=== PATIENT | male | born 1985 | race Caucasian/White ===

== ENCOUNTER 2018-06-07 23:16 | Inpatient (IN) | payer OTHER ==
[~2018-06-07] VITALS: Ht 185.4 cm; Wt 79.4 kg
[~2018-06-07 23:16] MED LIST: HYDROCODON-ACE1 EAC7 PO; PENICILLIN V P500 MG PO; VICODIN 5-3001 EACH PO
[2018-06-07 23:21] VITALS: BP 168/104
[2018-06-07 23:48] LABS: ABSOLUTE EOSINOPHILS 0.2 thou/uL (0.0-0.7); ABSOLUTE LYMPHOCYTES 1.9 thou/uL (0.8-5.3); ABSOLUTE MONOCYTES 0.5 thou/uL (0.0-1.2); ABSOLUTE NEUTROPHILS 6.1 thou/uL (1.6-8.1); BASOPHILS 0.4 %; EOSINOPHILS 1.8 %; HEMATOCRIT 45.7 % (42.0-52.0); HEMOGLOBIN 15.4 gm/dL (14.0-18.0); LYMPHOCYTES 21.9 %; MCH 31.4 pg (26.0-34.0); MCHC 33.6 g/dL (28.0-37.0); MCV 93.4 fL (80.0-100.0); MONOCYTES 6.1 %; MPV 9.2 fl. (7.2-11.1); NUCLEATED RBCS 0 /100WBC; PLATELET COUNT* 235 thou/uL (150-400); POLYS 69.8 %; RBC 4.89 mil/uL (4.50-6.00); RDW-CV 14.4 % (10.5-14.5); WBC 8.7 thou/uL (4.0-11.0)
[2018-06-07 23:51] LABS: CALCIUM 9.6 mg/dL (8.5-10.1); CREATININE 0.9 mg/dL (0.6-1.3); INR 0.9; POTASSIUM 3.7 mmol/L (3.5-5.1); PROTIME 9.6 Seconds (9.20-11.50)
[2018-06-07 23:55] LABS: ALBUMIN 4.5 g/dL (3.4-5.0); TOTAL PROTEIN 8.2 g/dL (6.4-8.2)
[2018-06-08] VITALS (7 sets, daily range): BP systolic 120–131; BP diastolic 75–85
[2018-06-08] MEDS ORDERED: NORCO 7.5-3251 EACH PO (00:20)
--- NOTE | 2018-06-08 06:14 | NUR ---
PT TO FLOOR APROX 0200. VITALS WNL. SEE MAR. SEE CHARTING. JENNIFER ISBELLING FOR SAFETY.
--- NOTE | 2018-06-08 07:15 | NUR ---
ASSUMED CARE OF PTASSESSED AND DOCUMENTED. PT IS ON CARDIAC MONITR TRACING SR. PT IS A&O WITH NO C/O PAIN. VSS WNL. PT IS AFEBRILE. HE CONT ON HEPARIN GTT FOR BLOOD CLOT IN RADIAL ARTERY ON L HAND. BED IS IN LOW POSITION CALL LIGHT IS IN REACH. WM.
[2018-06-08 11:39] LABS: CREATININE 0.7 mg/dL (0.6-1.3); POTASSIUM 3.7 mmol/L (3.5-5.1)
[2018-06-08 11:56] LABS: CHOLESTEROL 138 mg/dL (<200); HDL CHOLESTEROL 51 mg/dL (>40); LDL CHOLESTEROL 70 mg/dL (<100); TC:HDL 2.7 Ratio (Not establshd); TRIGLYCERIDE 87 mg/dL (<150); VLDL 17 mg/dL (<40)
[2018-06-08 11:58] LABS: SERUM ASSESSMENT Clear
--- NOTE | 2018-06-08 12:11 | NUR ---
Pt is A&O. Resides at home alone. Independent and active. No DME. No hx HH or SNF. Goal is home.
--- NOTE | 2018-06-08 14:26 | EKG ---
[place] [address] ELECTROCARDIOGRAM REPORT Name: CARISA SCHULZ Room: [address] ADM IN .R.#: [id number] Admission: 06/08/18 Attend Phys: Jailyn Escoto MD Discharge: Date of : 89 Report #: [id number] THIS REPORT FOR: //name// [facility] ED Test Date: 2018-06-08 Test Time: 01:07:08 Pat Name: CARISA SCHULZ Department: Room: [facility] Gender: Knocker Out: [place] : 1985 Requested By: Melinda Man Order Number: [id number] MD: Demarco Ramirez Measurements Intervals Osprey Rate: 79 P: 65 W[place]: 155 QRS: 74 QRSD: 90 T: 42 QT: 366 QTc: 420 Interpretive Statements Sinus rhythm ST elev, probable normal early repol pattern No previous ECG available for comparison Electronically Signed On 06-08-2018 14:25:55 COMPUTER LAB ASSISTANT by Demarco Ramirez [email or web address] <ELECTRONICALLY SIGNED> By: Demarco Ramirez MD, [facility] 06/08/18 1425 010 010 Demarco Ramirez MD, FACC /EPI
--- NOTE | 2018-06-08 16:57 | NUR ---
PT HAS RESTED IN HIS ROOM THIS SHIFT. HEPARIN STOPPED AND PT STARTED ON XARALTO. PT HAD PAIN MED X2 FOR HIS L WRIST. SWELLING HAS DECREASED AND PT STATES FEELING IS COMING BACK. HOURLY ROUNDING COMPLETE. EDUCATION GIVEN ON DEMAND.
--- NOTE | 2018-06-08 17:56 | 2DMMODE ---
[place] [address] 2 D/M-MODE ECHOCARDIOGRAM Name: CARISA SCHULZ Room: [address] [place] [facility]#: [id number] Admission: 06/08/18 Attend Phys: Jailyn Escoto, Discharge: Date of : 89 Date of Service: 06/08/18 1755 Report #: [id number] THIS REPORT FOR: //name// APPROVED REPORT Study performed: 06/08/2018 14:13:40 EXAM: Comprehensive 2D, Doppler, and color-flow Echocardiogram Patient Location: In-Patient Room #: [facility] Status: routine BSA: 2.04 HR: 74 bpm BP: 120/79 mmHg Rhythm: NSR Other Information Study Quality: Excellent Indications R/O thrombus source 2D Dimensions IVSd: 7.84 (7-11mm) LVOT Diam: 23.08 (18-24mm) LVDd: 48.55 mm PWd: 8.83 (7-11mm) Ascending Ao: 33.85 (22-36mm) LVDs: 32.56 (25-40mm) Aortic Root: 28.47 mm Volumes Left Atrial Volume (Systole) LA ESV Index: 20.30 mL/m2 Aortic Valve AoV Peak Jin.: 1.33 m/s AO Peak Gr.: 7.03 mmHg LVOT Max P.55 mmHg AO Mean Gr.: 3.61 mmHg LVOT Mean P.42 mmHg LVOT Max V: 1.18 m/s AO V2 VTI: 19.67 cm LVOT Mean V: 0.70 m/s MAXWELL (VTI): 4.30 cm2 LVOT V1 VTI: 20.24 cm Mitral Valve E/A Ratio: 1.40 MV Decel. Time: 151.25 ms MV E Max Jin.: 0.75 m/[place] [address] 2 D/M-MODE ECHOCARDIOGRAM Name: CARISA SCHULZ Room: [address] IN ..#: [id number] Admission: 06/08/18 Attend Phys: Jailyn Escoto, Discharge: Date of : 89 Date of Service: 06/08/18 1755 Report #: [id number] MV PHT: 43.86 ms MVA (PHT): 5.02 cm2 TDI E/Lateral E': 3.95 E/Medial E': 4.41 Medial E' Jin.: 0.17 m/s Lateral E' Jin.: 0.19 m/s Pulmonary Valve PV Peak Jin.: 1.10 m/s PV Peak Gr.: 4.84 mmHg Left Ventricle The left ventricle is normal size. There is normal LV segmental wall motion. There is normal left ventricular wall thickness. Left ventricular systolic function is normal. The left ventricular ejection fraction is within the normal range. LVEF is 60-65%. The left ventricular diastolic function is normal. Right Ventricle The right ventricle is normal size. The right ventricular systolic function is normal. Atria The left atrium size is normal. The right atrium size is normal. Aortic Valve The aortic valve is normal in structure. No aortic regurgitation is present. There is no aortic valvular stenosis. Mitral Valve The mitral valve is normal in structure. There is no mitral valve regurgitation noted. No evidence of mitral valve stenosis. Tricuspid Valve The tricuspid valve is normal in structure. Trace tricuspid regurgitation. Unable to assess PA pressure. Pulmonic Valve The pulmonary valve is normal in structure. There is no pulmonic valvular regurgitation. Great Vessels The aortic root is normal in size. IVC is normal in size and collapses >50% [place] [address] 2 D/M-MODE ECHOCARDIOGRAM Name: CARISA SCHULZ Gopi Room: [address] [place] [facility]#: [id number] Admission: 06/08/18 Attend Phys: Jailyn Escoto, Discharge: Date of : 89 Date of Service: 06/08/18 1755 Report #: [id number] Pericardium There is no pericardial effusion. <Conclusion> Left ventricular systolic function is normal. The left ventricular ejection fraction is within the normal range. <ELECTRONICALLY SIGNED> By: Demarco Ramirez MD, FACC 06/08/181754 54 54 Demarco Ramirez MD, FACC /INF
[2018-06-09 02:08] LABS: GLYCOHEMOGLOBIN (HGB A1C) 4.8 % (4.8-5.6)
[2018-06-09 04:00] VITALS: BP 125/79
[2018-06-09 04:43] LABS: POC CA IONIZED 4.8 mg/dL (4.5-5.3); POC CREATININE 0.7 mg/dL (0.6-1.3); POC POTASSIUM 3.8 mmol/L (3.5-4.9)
--- NOTE | 2018-06-09 06:43 | NUR ---
ASSUMED PT CARE @ 1930. SEE MAR AND CHARTING. MORPHINE GIVEN X2 FOR LEFT HAND PAIN. 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 ONLY MILD DISCOLORATION IN LEFT PINKIE. PT REPORTS LESS NUMBNESS AND TINGLING. HOURLY PRECAUTIONS IN PLACE FOR SAFETY.
[2018-06-09 09:15] VITALS: BP 132/84
[2018-06-09 12:00] VITALS: BP 124/81
--- NOTE | 2018-06-09 18:42 | NUR ---
RECEIVED REPORT FROM WILL AND ASSUMED CARE OF PT AT 0730. VSS TRACING NORMAL SINUS RHYTHM ON CHEMICAL RESEARCH TECHNICIAN. ALERT AND ORIENTED X4. PT REPORTS PAIN 0 TO 1 OUT OF 10 ON PAIN SCALE AND PAIN WELL MANAGED WITH IV MORPHINE. IV PATENT AND SALINE LOCKED. HES UP AD DUONG IN ROOM. LEFT HAND CONTINUES TO IMPROVE WITH DECREASE REDNESS AND SWELLING. HOURLY ROUNDING PERFOMED. CALL LIGHT WITHIN REACH. WILL CONTINUE TO MONITOR.
[2018-06-09 20:00] VITALS: BP 126/81
[2018-06-10] VITALS (7 sets, daily range): BP systolic 107–111; BP diastolic 64–77
--- NOTE | 2018-06-10 04:58 | NUR ---
ASSUMED CARE OF PT AFTER REPORT AT 1930. PT A&OX4. VSS. PHYSICAL ASSESSMENT COMPLETED AND CHARTED. PT ON RA WITH 99% O2 SAT. PT TRACING SR/ST ON TELE. PT UP ADLIB TO RESTROOM. PT COMPLAINED PAIN ON RING & LITTLE FINGER WITH PAIN SCALE OF 5/10-PAIN MED GIVEN PER MAR WITH PARTIAL RELIEF. HOURLY ROUNDING OBSERVED. CALL LIGHT WITHIN REACH. BED IN LOW POSITION.
[2018-06-10] MEDS ORDERED: XARELTO15 MG PO (15:50)
[2018-06-10] MEDS ORDERED: XARELTO20 MG PO (15:51)
[2018-06-10] MEDS ORDERED: NORCO 5-325 TA1 EACH PO (15:51)
--- NOTE | 2018-06-10 17:02 | NUR ---
ALERT AND ORIENTED X4. UP AD DUONG IN ROOM. IV DC'D. PAIN BEING MANAGED WITH PO AND IV PAIN MEDICATION. DENIES NAUSEA. LEFT 4-5 DIGITS ARE STILL SWOLLEN AND HAVING PAIN. ALL PERSONAL ITEMS LEFT WITH PATIENT. DISCHARGE INSTRUCTIONS, PRESCRIPTIONS, AND NEW MEDICATION INFORMATION INFORMATION WENT OVER AND GIVEN TO PATIENT. VSS ON ROOM AIR. HOURLY ROUNDS HAVE BEEN MAINTAINED THROUGHOUT SHIFT. RIDE IS ON THERE WAY FOR DISCHARGE.
== END 2018-06-10 17:25 | disposition home or self-care (01) | DRG 300 ==
LOC: M.ERS 23:16 → M.TBA-ER 06-08 01:25 → M.2W 06-08 01:25
PROVIDERS: Emergency Medicine; Internal Medicine; ADMIT Internal Medicine
DX: I70.208 Unspecified atherosclerosis of native arteries of extremities, other extremity (principal); K50.90 Crohn's disease, unspecified, without complications; Z90.49 Acquired absence of other specified parts of digestive tract; Z82.3 Family history of stroke

== ENCOUNTER 2018-07-16 07:48 | Emergency (ER) | payer OTHER ==
[~2018-07-16] VITALS: Ht 185.4 cm; Wt 86.2 kg
[~2018-07-16 07:48] MED LIST changes: +NORCO 5-325 TA1 EACH PO; +NORCO 7.5-3251 EACH PO; +XARELTO15 MG PO; +XARELTO20 MG PO
[2018-07-16 07:51] VITALS: BP 128/94
[2018-07-16] MEDS ORDERED: CLEOCIN HCL300 MG PO (08:15)
[2018-07-16] MEDS ORDERED: NAPROSYN500 MG PO (08:15)
== END 2018-07-16 08:23 | disposition home or self-care (01) ==
LOC: M.ERS 07:48
DX: K08.89 Other specified disorders of teeth and supporting structures (principal); K50.90 Crohn's disease, unspecified, without complications